=== PATIENT | female | born 1980 | race Caucasian/White ===

== ENCOUNTER 2017-11-26 18:15 | Emergency (ER) | payer OTHER, SELFPAY ==
[2017-11-26 18:16] VITALS: BP 134/74; PULSE 71; RESP 16; TEMP 36.6; O2SAT 98; BMI 31.3
--- NOTE | 2017-11-26 19:31 | CT_ITS ---
STUDY: CT BRAIN WITHOUT CONTRAST REASON FOR EXAM: Female, 37 years old. Trauma. Headache. RADIATION DOSAGE (If Supplied By Facility): CTDIvol = ( 44.99 ) mGy, DLP = ( 762.36 ) mGycm TECHNIQUE: Transaxial CT imaging of the brain was performed without administration of intravenous contrast material. Individualized dose optimization techniques were used for this CT. COMPARISON: None. FINDINGS: There is no acute bleed or infarct. There are normal white matter tracts. The ventricles are normal in configuration. There is no hydrocephalus. The visualized paranasal sinuses are clear. The mastoid air cells are well aerated. There is no skull fracture. CT/Brain/Head without Contrast IMPRESSION: No acute intracranial abnormality. Electronically Signed: Blair Arrieta, at 20:30 EDT Tel , Service support ,
[2017-11-26 20:05] VITALS: BP 156/98; PULSE 68; RESP 14; O2SAT 99
[2017-11-26] MEDS: Ondansetron ODT 4 MG Tablet PO (20:08)
--- NOTE | 2017-11-26 21:38 | ED.VISSUMM ---
- ER Visit Summary Date of Service: 11/26/17 Chief Complaint: Head injury History of Present Illness: The patient is a 37 F since to the emergency department with head injury. Patient was at work. She walked right into a large piece of medical equipment. She did not lose consciousness, but did strike her right uatsdin. Since the incident, she has been having dizziness and nausea. She denies any vomiting. She has had intermittent blurry vision. She denies neck pain. She takes no anticoagulants. Physical Examination: Well-appearing patient is in no acute distress. Head is normocephalic, atraumatic. Pupils equal round reactive, extraocular muscles intact. There is no temporal artery tenderness. There is no vesicular rash. Neck supple. Kernig's and Brudzinski's are negative. Heart regular rate and rhythm. Lungs clear, chest nontender. Abdomen soft, nontender, nondistended. Neuro exam displays no focal or lateralizing deficit. 2+ symmetric lower extremity reflexes. No clonus. No ataxia or gait abnormality. Test Results: [] Emergency Department Course and Treatment: The patient's head injury and persistent symptoms, I did obtain a head CT. This is unremarkable. The patient was treated with oral Zofran. She had resolution of her nausea. At this time, I do for the patient is safe for discharge with follow-up with [facility]. She will be allowed to return to work with limited activities as she does have concussion. She will be prescribed Zofran for home. She is counseled on hydration and anti-inflammatories. The patient will be discharged. Treatment Plan: [] Disposition: Discharge Impression: 1. Concussion This note was generated with [employer] dictation software. It may contain incorrect words, spelling, and punctuation that were not noted in review of the chart prior to signing ED Disposition - Plan for ED Patient: Chief Complaint: Head Injury Instructions: ED Concussion Prescriptions: Ondansetron [Zofran Odt] 4 mg PO Q8H PRN PRN #10 tab PRN Reason: Nausea Referrals: AMEYA,AMEYA [GROUP OF PHYSICIANS] -
[2017-11-26 21:44] VITALS: PULSE 89; RESP 14; O2SAT 98
== END 2017-11-26 21:45 | disposition home or self-care (01) ==
PROVIDERS: Emergency Provider Emergency Medicine
DX: S06.0X0A Concussion without loss of consciousness, initial encounter (principal); Z72.0 Tobacco use; W22.8XXA Striking against or struck by other objects, initial encounter; Y93.01 Activity, walking, marching and hiking; Y92.89 Other specified places as the place of occurrence of the external cause; Y99.0 Civilian activity done for income or pay
CPT/HCPCS: 70450; 99282